=== PATIENT | female | born 1950 | race Caucasian/White ===

== ENCOUNTER 2018-03-30 11:22 | Inpatient (IN) | payer MEDICARE, OTHER ==
[2018-03-30] MEDS ORDERED: Sodium Chloride 0.9% 1,000 ML IV STA (11:57)
--- NOTE | 2018-03-30 12:10 | ED PDOC ---
Syncope/Near Syncope/Dizziness Time Seen by Provider: 03/30/18 11:48 Chief Complaint (Nursing): Syncope Chief Complaint (Provider): Syncope History Per: Family History/Exam Limitations: no limitations Number Of Syncopal Episodes: 3 Fall Associated With With Symptoms: No Additional Complaint(s): Daughter states patient c/o mild TAN this morning. Pt was walking when she had syncopal episode, caught by daughter, no head trauma, lasted few seconds, shaking up both arms but daughter states was not seizure, no postictal period. Daughter took BP after episode, systolic 60s-90s, appeared pale with cool skin. Had another syncopal episode while lying in bed and another while sitting in chair. Pt with Alzheimer's disease, normally ambulates but oriented X 0. Pt finished radiation therapy for pancreatic CA. Past Medical History Reviewed: Nursing Documentation, Vital Signs Vital Signs: Last Vital Signs Temp 97.8 F 03/30/18 11:55 Pulse 64 03/30/18 11:55 Resp 16 03/30/18 11:55 BP 100/51 L 03/30/18 11:55 Pulse Ox 96 03/30/18 11:55 - Medical History PMH: Alzheimer's Disease, Malignancy - Family History Family History: States: Unknown Family Hx - Living Arrangements Living Arrangements: With Family - Social History Current smoker - smoking cessation education provided: No - Home Medications Home Medications: Ambulatory Orders Medication Instructions Recorded Aspirin [Ecotrin] 81 mg PO DAILY 03/30/18 Carvedilol [Coreg] 6.25 mg PO DAILY 03/30/18 Dapagliflozin Propanediol [Farxiga] 5 mg PO DAILY 03/30/18 Donepezil [Aricept] 10 mg PO Q12 03/30/18 Enalapril Maleate [Vasotec] 10 mg PO DAILY 03/30/18 Ergocalciferol (Vitamin D2) 50,000 unit PO WE 03/30/18 [Vitamin D2] Fludrocortisone [Florinef] 0.05 mg PO DAILY 03/30/18 Insulin Glargine,Hum.rec.anlog 35 unit SC BID 03/30/18 [Basaglar Kwikpen U-100] Levothyroxine [Synthroid] 175 mcg PO DAILY 03/30/18 Lubiprostone [Amitiza] 8 mcg PO DAILY 03/30/18 MetFORMIN [glucoPHAGE] 1,000 mg PO BID 03/30/18 Multivitamin [Multi-Vitamin Daily] 1 tab PO DAILY 03/30/18 Pioglitazone HCl [Actos] 15 mg PO DAILY 03/30/18 Rosuvastatin Calcium [Crestor] 40 mg PO HS 03/30/18 - Allergies Allergies/Adverse Reactions: Allergies Allergy/AdvReac Type Severity Reaction Status Date / Time No Known Allergies Allergy Verified 03/30/18 11:37 Review of Systems Review Of Systems: ROS cannot be obtained secondary to pt's inabilty to answer questions. Physical Exam - Physical Exam Appears: Positive for: Well, No Acute Distress Head Exam: Positive for: ATRAUMATIC, NORMAL INSPECTION Skin: Positive for: Normal Color, Warm, Dry Eye Exam: Positive for: Normal appearance, EOMI, PERRL Neck: Positive for: Normal Cardiovascular/Chest: Positive for: Regular Rate, Rhythm Respiratory: Positive for: Normal Breath Sounds Gastrointestinal/Abdominal: Positive for: Normal Exam, Bowel Sounds, Soft. Negative for: Tenderness Back: Positive for: Normal Inspection Extremity: Positive for: Normal ROM Neurologic/Psych: Positive for: Alert, blasting contract miner II-XII (Grossly intact). Negative for: Oriented, Motor/Sensory Deficits, Facial Droop - Laboratory Results Result Diagrams: 03/31/18 07:00 03/31/18 08:00 - ECG O2 Sat by Pulse Oximetry: 96 Medical Decision Making Medical Decision Makin yo female with syncopal episodes. - labs - EKG - CXR - CT head - IVF - orthostatics Accession No. : [id number] Patient Name / ID : GINA GONZALEZ / [id number] Exam Date : 03/30/2018 12:06:07 ( Approved ) Study Comment : Sex / Age : F / 67Y Creator : Ahmet Valle MD Dictator : Ahmet Valle MD Retail Inventory Control Clerk : Process Development Associate : Ahmet Valle MD Approver2 : Report Date : 03/30/2018 12:55:18 My Comment : HISTORY: Syncope COMPARISON: 07/15/2013 FINDINGS: LUNGS: Increased vascular congestion. No focal airspace opacity. PLEURA: No significant pleural effusion identified, no pneumothorax apparent. CARDIOVASCULAR: Stable cardiomediastinal silhouette. OSSEOUS STRUCTURES: Degenerative changes. VISUALIZED UPPER ABDOMEN: Normal. OTHER FINDINGS: None. IMPRESSION: Increased vascular congestion. No focal airspace opacity. Accession No. : [id number] Patient Name / ID : GINA GONZALEZ / [id number] Exam Date : 03/30/2018 13:20:22 ( Approved ) Study Comment : Sex / Age : F / 67Y Creator : Ahmet Valle MD Dictator : Ahmet Valle MD Retail Inventory Control Clerk : Process Development Associate : Ahmet Valle MD Approver2 : Report Date : 03/30/2018 13:59:23 My Comment : PROCEDURE: CT HEAD WITHOUT CONTRAST. HISTORY: Syncope COMPARISON: 07/15/2013 TECHNIQUE: Axial computed tomography images were obtained through the head/brain without intravenous contrast. Radiation dose: Total exam DLP = 795.1 mGy-cm. This CT exam was performed using one or more of the following dose reduction techniques: Automated exposure control, adjustment of the mA and/or kV according to patient size, and/or use of iterative reconstruction technique. FINDINGS: HEMORRHAGE: No intracranial hemorrhage. BRAIN: No mass effect or edema. Mild volume loss. Patchy and confluent hypodensities throughout the bilateral cerebral hemispheric white matter are most likely from chronic small vessel ischemic changes. VENTRICLES: Unremarkable. No hydrocephalus. CALVARIUM: Unremarkable. PARANASAL SINUSES: Unremarkable as visualized. No significant inflammatory changes. MASTOID AIR CELLS: Unremarkable as visualized. No inflammatory changes. OTHER FINDINGS: None. IMPRESSION: No CT evidence of acute intracranial hemorrhage or acute territorial infarct. Acute infarction may be CT occult within first 24 hours. If a focal deficit persists, consider followup CT or MRI for further evaluation. Disposition - Clinical Impression Clinical Impression: Syncope - Patient ED Disposition Is Patient to be Admitted: Yes - Disposition Disposition Time: 16:43 Condition: GUARDED - Pt Status Changed To: Hospital Disposition Of: Inpatient - Admit Certification Admit to Inpatient:: After my assessment, the patient will require hospitalization for at least two midnights. This is because of the severity of symptoms shown, intensity of services needed, and/or the medical risk in this patient being treated as an outpatient. - POA Present On Arrival: None
[2018-03-30 12:55] LABS: BASO # 0.1 K/uL (0.0-0.2); EOS # 0.3 K/uL (0.0-0.7); EOS % 2.6 % (0.0-4.0); HEMOGLOBIN 12.8 g/dL (12.0-16.0); LYMPH # 2.4 K/uL (1.0-4.3); LYMPH % 18.3 % (20.0-40.0); MEAN CELL VOLUME 90.7 fl (81.0-99.0); MEAN CORPUSCULAR HEMOGLOBIN 30.1 pg (27.0-31.0); MEAN CORPUSCULAR HGB CONC 33.2 g/dL (33.0-37.0); MEAN PLATELET VOLUME 10.3 fl (7.2-11.7); MONO # 0.8 K/uL (0.0-0.8); MONO % 6.3 % (0.0-10.0); NEUT # 9.4 K/uL (1.8-7.0); NEUT % 71.8 % (50.0-75.0); NRBC % 0.1 % (0.0-0.0); RBC 4.26 Mil/uL (3.80-5.20); RED CELL DISTRIBUTION WIDTH 13.7 % (11.5-14.5); WHITE BLOOD COUNT 13.1 K/uL (4.8-10.8)
--- NOTE | 2018-03-30 12:56 | RAD ---
HISTORY: Syncope COMPARISON: 07/15/2013 FINDINGS: LUNGS: Increased vascular congestion. No focal airspace opacity. PLEURA: No significant pleural effusion identified, no pneumothorax apparent. CARDIOVASCULAR: Stable cardiomediastinal silhouette. OSSEOUS STRUCTURES: Degenerative changes. VISUALIZED UPPER ABDOMEN: Normal. OTHER FINDINGS: None. IMPRESSION: Increased vascular congestion. No focal airspace opacity.
[2018-03-30 13:05] LABS: ALB/GLOB RATIO 1.2 (1.0-2.1); ALBUMIN 4.2 g/dL (3.5-5.0); ALT/SGPT 25 U/L (9-52); AST/SGOT 29 U/L (14-36); BLOOD UREA NITROGEN 23 mg/dl (7-17); CALCIUM 9.2 mg/dL (8.4-10.2); GFR AFRICAN-AMERICAN 60; GFR NON-AFRICAN AMERICAN 49
--- NOTE | 2018-03-30 14:00 | CT ---
PROCEDURE: CT HEAD WITHOUT CONTRAST. HISTORY: Syncope COMPARISON: 07/15/2013 TECHNIQUE: Axial computed tomography images were obtained through the head/brain without intravenous contrast. Radiation dose: Total exam DLP = 795.1 mGy-cm. This CT exam was performed using one or more of the following dose reduction techniques: Automated exposure control, adjustment of the mA and/or kV according to patient size, and/or use of iterative reconstruction technique. FINDINGS: HEMORRHAGE: No intracranial hemorrhage. BRAIN: No mass effect or edema. Mild volume loss. Patchy and confluent hypodensities throughout the bilateral cerebral hemispheric white matter are most likely from chronic small vessel ischemic changes. VENTRICLES: Unremarkable. No hydrocephalus. CALVARIUM: Unremarkable. PARANASAL SINUSES: Unremarkable as visualized. No significant inflammatory changes. MASTOID AIR CELLS: Unremarkable as visualized. No inflammatory changes. OTHER FINDINGS: None. IMPRESSION: No CT evidence of acute intracranial hemorrhage or acute territorial infarct. Acute infarction may be CT occult within first 24 hours. If a focal deficit persists, consider followup CT or MRI for further evaluation.
[2018-03-30 18:03] LABS: SQUAMOUS EPITHIAL 6 /hpf (0-5); URINE BACTERIA OCC (<OCC); URINE BILIRUBIN NEGATIVE (NEGATIVE); URINE BLOOD SMALL (NEGATIVE); URINE CLARITY CLOUDY (Clear); URINE COLOR YELLOW (YELLOW); URINE GLUCOSE (UA) >=500 mg/dL (Normal); URINE HYALINE CAST 0-2 /hpf (0-2); URINE LEUKOCYTE ESTERASE LARGE Leu/uL (Negative); URINE PROTEIN NEGATIVE (NEGATIVE); URINE UROBILINOGEN 0.2-1.0 mg/dL (0.2-1.0)
[2018-03-30] MEDS ORDERED: Insulin Detemir 100 Units/ml Inj SC SCH (22:00)
[2018-03-30] MEDS: Insulin Regular 100 units/ml SC SCH (23:35)
[2018-03-31 01:44] VITALS: BMI 31.2
[2018-03-31] MEDS: Levothyroxine 175 MCG TAB PO SCH (06:08)
[2018-03-31] MEDS: Insulin Regular 100 units/ml SC SCH ×4 (06:33→21:56)
[2018-03-31 08:10] LABS: HEMOGLOBIN 12.6 g/dL (12.0-16.0); MEAN CELL VOLUME 90.4 fl (81.0-99.0); MEAN CORPUSCULAR HEMOGLOBIN 30.3 pg (27.0-31.0); MEAN CORPUSCULAR HGB CONC 33.5 g/dL (33.0-37.0); RBC 4.15 Mil/uL (3.80-5.20); RED CELL DISTRIBUTION WIDTH 13.1 % (11.5-14.5); WHITE BLOOD COUNT 11.1 K/uL (4.8-10.8)
[2018-03-31] MEDS: Multivitamin With Minerals Tab PO SCH (08:21)
[2018-03-31] MEDS: Enoxaparin 40 mg Syringe SC SCH (08:22)
--- NOTE | 2018-03-31 08:34 | CP.PCM.HP ---
History of Present Illness - History of Present Illness History of Present Illness: 67 YR OLD FEMALE ADMITTED WITH MULTIPLE SYNCOPAL EPISODES AND POSTURAL HYPOTENSION YESTERDAY.HX WAS OBTAINED FROM THE DAUGHTER WHO CLAIMED THAT THE PT HAD MULTIPLE SYNCOPAL EPISODES WHILE WALKING AND THEN WHILE SITTING ON THE COMMODE.HER BLOOD PRESSURE WAS LOW DURING EPISODES.SHE ALSO FELT COLD AND CLAMMY.IN THE ER,SHE WAS NOTED TO HAVE POSTURAL HYPOTENSION.THE PT IS PRESENTLY AWAKE/ALERT AND COMFORTABLE. PHX-THYROID CANCER? PANCREATIC CANCER--MANY YRS AGO--S/P SURGICAL RESECTION DM HTN DEMENTIA Present on Admission - Present on Admission Any Indicators Present on Admission: Yes Past Patient History - Past Medical History & Family History Past Medical History?: Yes - Past Social History Smoking Status: Never Smoked - CARDIAC Hx Cardiac Disorders: No - PULMONARY Hx Respiratory Disorders: No - NEUROLOGICAL Hx Neurological Disorder: Yes Hx Alzheimer's Disease: Yes - HEENT Hx HEENT Problems: No - RENAL Hx Chronic Kidney Disease: No - ENDOCRINE/METABOLIC Hx Endocrine Disorders: Yes Hx Diabetes Mellitus Type 2: Yes Other/Comment: pancreatic cancer - HEMATOLOGICAL/ONCOLOGICAL Hx Blood Disorders: Yes Hx AIDS: No Hx Chemotherapy: Yes (radiation theraphy just finished) Hx Human Immunodeficiency Virus (HIV): No Other/Comment: panceratic cancer,malignancy - INTEGUMENTARY Hx Dermatological Problems: No - MUSCULOSKELETAL/RHEUMATOLOGICAL 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) Hx Falls: No - GASTROINTESTINAL Hx Pancreatitis: Yes (panceratic cancer) - PSYCHIATRIC Hx Psychophysiologic Disorder: Yes Hx Substance Use: No Other/Comment: alzheimers dis - SURGICAL HISTORY Hx Surgeries: No - ANESTHESIA Hx Anesthesia: Yes Hx Anesthesia Reactions: No Hx Malignant Hyperthermia: No Has any member of the family had a problem w/ anesthesia?: No Meds Allergies/Adverse Reactions: Allergies Allergy/AdvReac Type Severity Reaction Status Date / Time No Known Allergies Allergy Verified 03/30/18 11:37 Physical Exam - Constitutional Appears: Well, No Acute Distress - Head Exam Head Exam: ATRAUMATIC, NORMAL INSPECTION, NORMOCEPHALIC - Eye Exam Eye Exam: EOMI, Normal appearance, PERRL Pupil Exam: NORMAL ACCOMODATION, PERRL - ENT Exam ENT Exam: Mucous Membranes Moist, Normal Exam - Neck Exam Neck exam: Positive for: Normal Inspection - Respiratory Exam Respiratory Exam: Clear to Auscultation Bilateral, NORMAL BREATHING PATTERN - Cardiovascular Exam Cardiovascular Exam: REGULAR RHYTHM - GI/Abdominal Exam GI & Abdominal Exam: Normal Bowel Sounds, Soft. absent: Tenderness - Rectal Exam Rectal Exam: NORMAL INSPECTION - Extremities Exam Extremities exam: Positive for: normal inspection - Back Exam Back exam: NORMAL INSPECTION - Neurological Exam Neurological exam: Alert, CN II-XII Intact, Reflexes Normal - Psychiatric Exam Psychiatric exam: Normal Affect, Normal Mood - Skin Skin Exam: Dry, Intact, Normal Color, Warm Results - Vital Signs Recent Vital Signs: Last Vital Signs Temp 98.1 F 03/31/18 08:00 Pulse 95 H 03/31/18 08:03 Resp 13 03/31/18 08:00 BP 138/58 L 03/31/18 08:00 Pulse Ox 98 03/31/18 08:00 - Labs Result Diagrams: 03/31/18 07:00 03/30/18 12:50 Labs: Laboratory Results - last 24 hr 03/30/18 03/30/18 03/30/18 11:37 12:50 12:50 WBC 13.1 H RBC 4.26 Hgb 12.8 Hct 38.6 MCV 90.7 MCH 30.1 MCHC 33.2 RDW 13.7 Plt Count 278 MPV 10.3 Neut % (Auto) 71.8 Lymph % (Auto) 18.3 L Dawson % (Auto) 6.3 Eos % (Auto) 2.6 Baso % (Auto) 1.0 Neut # (Auto) 9.4 H Lymph # (Auto) 2.4 Dawson # (Auto) 0.8 Eos # (Auto) 0.3 Baso # (Auto) 0.1 APTT Sodium 140 Potassium 4.6 Chloride 101 Carbon Dioxide 30 Anion Gap 14 BUN 23 H Creatinine 1.1 Est GFR ( Amer) 60 Est GFR (Non-Af Amer) 49 POC Glucose (mg/dL) 272 H Random Glucose 319 H Calcium 9.2 Total Bilirubin 0.6 AST 29 ALT 25 Alkaline Phosphatase 76 Troponin I < 0.0120 Total Protein 7.8 Albumin 4.2 Globulin 3.6 Albumin/Globulin Ratio 1.2 Urine Color Urine Clarity Urine pH Ur Specific Eldred Urine Protein Urine Glucose (UA) Urine Ketones Urine Blood Urine Nitrate Urine Bilirubin Urine Urobilinogen Ur Leukocyte Esterase Urine RBC (Auto) Urine Microscopic WBC Ur Squamous Epith Cells Urine Bacteria Hyaline Casts 03/30/18 03/30/18 03/30/18 12:50 17:12 17:40 WBC RBC Hgb Hct MCV MCH MCHC RDW Plt Count MPV Neut % (Auto) Lymph % (Auto) Dawson % (Auto) Eos % (Auto) Baso % (Auto) Neut # (Auto) Lymph # (Auto) Dawson # (Auto) Eos # (Auto) Baso # (Auto) APTT 29.8 Sodium Potassium Chloride Carbon Dioxide Anion Gap BUN Creatinine Est GFR ( Amer) Est GFR (Non-Af Amer) POC Glucose (mg/dL) 344 H Random Glucose Calcium Total Bilirubin AST ALT Alkaline Phosphatase Troponin I Total Protein Albumin Globulin Albumin/Globulin Ratio Urine Color Yellow Urine Clarity Cloudy Urine pH 6.0 Ur Specific Eldred 1.018 Urine Protein Negative Urine Glucose (UA) >=500 Urine Ketones Negative Urine Blood Small Urine Nitrate Negative Urine Bilirubin Negative Urine Urobilinogen 0.2-1.0 Ur Leukocyte Esterase Large Urine RBC (Auto) 4 H Urine Microscopic WBC 100 H Ur Squamous Epith Cells 6 H Urine Bacteria Occ H Hyaline Casts 0-2 03/30/18 03/30/18 03/31/18 20:56 22:55 05:43 WBC RBC Hgb Hct MCV MCH MCHC RDW Plt Count MPV Neut % (Auto) Lymph % (Auto) Dawson % (Auto) Eos % (Auto) Baso % (Auto) Neut # (Auto) Lymph # (Auto) Dawson # (Auto) Eos # (Auto) Baso # (Auto) APTT Sodium Potassium Chloride Carbon Dioxide Anion Gap BUN Creatinine Est GFR ( Amer) Est GFR (Non-Af Amer) POC Glucose (mg/dL) 333 H 304 H 208 H Random Glucose Calcium Total Bilirubin AST ALT Alkaline Phosphatase Troponin I Total Protein Albumin Globulin Albumin/Globulin Ratio Urine Color Urine Clarity Urine pH Ur Specific Eldred Urine Protein Urine Glucose (UA) Urine Ketones Urine Blood Urine Nitrate Urine Bilirubin Urine Urobilinogen Ur Leukocyte Esterase Urine RBC (Auto) Urine Microscopic WBC Ur Squamous Epith Cells Urine Bacteria Hyaline Casts 03/31/18 07:00 WBC 11.1 H RBC 4.15 Hgb 12.6 Hct 37.6 MCV 90.4 MCH 30.3 MCHC 33.5 RDW 13.1 Plt Count 260 MPV Neut % (Auto) Lymph % (Auto) Dawson % (Auto) Eos % (Auto) Baso % (Auto) Neut # (Auto) Lymph # (Auto) Dawson # (Auto) Eos # (Auto) Baso # (Auto) APTT Sodium Potassium Chloride Carbon Dioxide Anion Gap BUN Creatinine Est GFR ( Amer) Est GFR (Non-Af Amer) POC Glucose (mg/dL) Random Glucose Calcium Total Bilirubin AST ALT Alkaline Phosphatase Troponin I Total Protein Albumin Globulin Albumin/Globulin Ratio Urine Color Urine Clarity Urine pH Ur Specific Eldred Urine Protein Urine Glucose (UA) Urine Ketones Urine Blood Urine Nitrate Urine Bilirubin Urine Urobilinogen Ur Leukocyte Esterase Urine RBC (Auto) Urine Microscopic WBC Ur Squamous Epith Cells Urine Bacteria Hyaline Casts Assessment & Plan - Assessment and Plan (Free Text) Assessment: SYNCOPE POSTURAL HYPOTENSION HX OF HYPERTENSION HX OF THYROID CANCER HX OF PANCREATIC CANCER--SURGICALLY RESECTED MANY YRS AGO HX OF DEMENTIA DM TYPE 2 Plan: NEUROLOGY AND CARDIOLOGY EVAL MRI OF BRAIN ECHO CAROTID DOPPLER HOLD BP MEDS FOR NOW MONITOR S.GLU NEURO CHECKS
[2018-03-31] MEDS ORDERED: INSULIN GLARGINE HUM REC ANLOG 35 UNIT SC SCH (09:00)
[2018-03-31] MEDS ORDERED: Patient's Own Med (Multivitamin [Multi-Vitamin Daily] 1 TAB) PO SCH (09:00)
[2018-03-31 09:13] LABS: T4 12.6 ug/dl (5.5-11.0)
[2018-03-31] MEDS: Insulin Detemir 100 Units/ml Inj SC SCH ×2 (11:55→20:24)
[2018-03-31 12:39] LABS: BLOOD UREA NITROGEN 17 mg/dl (7-17); CALCIUM 8.9 mg/dL (8.4-10.2); GFR AFRICAN-AMERICAN > 60; GFR NON-AFRICAN AMERICAN > 60
--- NOTE | 2018-03-31 12:46 | CP.PCM.CON ---
History of Present Illness - History of Present Illness History of Present Illness: this 67-year-old diabetic female as well as a hypertensive who had required treatment for thyroid malignancy and also pancreatic malignancy recently has had multiple dizzy spells followed by a syncopal episode yesterday. Her daughter has been recording her blood pressure at home and she has noticed and the patient is reclining in bed has a normal blood pressure and feels well and upon standing up drops her systolic blood pressure in the range of 60 mmHg accompanied by severe dizzy spells and yesterday actually a syncopal episode. The patient came to, once she was horizontal again.there is no prior history of myocardial infarction or congestive cardiac failure. Physical examination shows an elderly lady with slightly flushed face. She is alert awake and coherent while lying in bed. She breathes comfortably at 16 breaths per minute had a heart rate of 68 bpm regular. Her blood pressure lying in bed was 120/74 mmHg sitting up in bed with feet dangling was 96/74 mmHg and upon standing up was 64/ 54 mmHg. The patient did not report dizziness at this point but she was promptly put back in bed with resolution of her hypotension. Her pedal pulses were feeble but distinctive present. There were no carotid bruits. Her JVP was not elevated and there was no edema over lower extremities. Her chest was clear her heart sounds are pure. Her electrocardiogram showed sinus rhythm with nonspecific ST-T changes. No Q waves were detected on the cardiogram her echocardiogram done this morning shows normal left ventricular systolic function with a depressed diastolic compliance. Her lab data was noted. The patient did display significant hyperglycemia. Impression: significant orthostatic hypotension which probably represents autonomic dysfunction secondary to long-standing diabetes mellitus. further aggravated by osmotic diuresis secondary to hyperglycemia possibly further aggravated by use of Farxiga in presence of left ventricular diastolic dysfunction. I started the patient on IV normal saline and given her Florinef. Past Patient History - Past Medical History & Family History Past Medical History?: Yes - Past Social History Smoking Status: Never Smoked - CARDIAC Hx Cardiac Disorders: No - PULMONARY Hx Respiratory Disorders: No - NEUROLOGICAL Hx Neurological Disorder: Yes Hx Alzheimer's Disease: Yes - HEENT Hx HEENT Problems: No - RENAL Hx Chronic Kidney Disease: No - ENDOCRINE/METABOLIC Hx Endocrine Disorders: Yes Hx Diabetes Mellitus Type 2: Yes Other/Comment: pancreatic cancer - HEMATOLOGICAL/ONCOLOGICAL Hx Blood Disorders: Yes Hx AIDS: No Hx Chemotherapy: Yes (radiation theraphy just finished) Hx Human Immunodeficiency Virus (HIV): No Other/Comment: panceratic cancer,malignancy - INTEGUMENTARY Hx Dermatological Problems: No - MUSCULOSKELETAL/RHEUMATOLOGICAL 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) Hx Falls: No - GASTROINTESTINAL Hx Pancreatitis: Yes (panceratic cancer) - PSYCHIATRIC Hx Psychophysiologic Disorder: Yes Hx Substance Use: No Other/Comment: alzheimers dis - SURGICAL HISTORY Hx Surgeries: No - ANESTHESIA Hx Anesthesia: Yes Hx Anesthesia Reactions: No Hx Malignant Hyperthermia: No Has any member of the family had a problem w/ anesthesia?: No Meds Allergies/Adverse Reactions: Allergies Allergy/AdvReac Type Severity Reaction Status Date / Time No Known Allergies Allergy Verified 03/30/18 11:37 - Medications Medications: Current Medications Aspirin (Ecotrin) 81 mg PO DAILY [facility] Last Admin: 03/31/18 08:21 Dose: 81 mg Atorvastatin Calcium (Lipitor) 20 mg PO DAILY [facility] Donepezil HCl (Aricept) 10 mg PO HS [facility] Last Admin: 03/30/18 23:16 Dose: 10 mg Enoxaparin Sodium (Lovenox) 40 mg SC DAILY [facility] PRN Reason: Protocol Last Admin: 03/31/18 08:22 Dose: 40 mg Fludrocortisone Acetate (Florinef) 0.1 mg PO BID [facility] Home Med (Dapagliflozin Propanediol [Farxiga]) 5 mg PO DAILY [facility] Sodium Chloride (Sodium Chloride 0.9%) 1,000 mls @ 100 mls/hr IV .Q10H [facility] Stop: 04/01/18 12:38 Insulin Detemir (Levemir) 35 units SC BID@0900,2100 [facility] Last Admin: 03/31/18 11:55 Dose: 35 u Insulin Human Regular (Humulin R) 0 units SC [facility] PRN Reason: Protocol Last Admin: 03/31/18 11:54 Dose: 3 units Levothyroxine Sodium (Synthroid) 175 mcg PO DAILY@0630 [facility] Last Admin: 03/31/18 06:08 Dose: 175 mcg Metformin HCl (Glucophage) 1,000 mg PO BID [facility] Last Admin: 03/31/18 08:22 Dose: 1,000 mg Multivitamins/Minerals (Therapeutic-M Tab) 1 tab PO DAILY [facility] Last Admin: 03/31/18 08:21 Dose: 1 tab Pioglitazone HCl (Actos) 15 mg PO DAILY [facility] Last Admin: 03/31/18 08:21 Dose: 15 mg Results - Vital Signs Recent Vital Signs: Last Vital Signs Temp 98.0 F 03/31/18 12:00 Pulse 79 03/31/18 12:00 Resp 18 03/31/18 12:00 BP 108/86 03/31/18 12:00 Pulse Ox 98 03/31/18 12:00 - Labs Result Diagrams: 03/31/18 07:00 03/31/18 08:00 Labs: Laboratory Results - last 24 hr 03/30/18 03/30/18 03/30/18 12:50 12:50 12:50 WBC 13.1 H RBC 4.26 Hgb 12.8 Hct 38.6 MCV 90.7 MCH 30.1 MCHC 33.2 RDW 13.7 Plt Count 278 MPV 10.3 Neut % (Auto) 71.8 Lymph % (Auto) 18.3 L [place] % (Auto) 6.3 Eos % (Auto) 2.6 Baso % (Auto) 1.0 Neut # (Auto) 9.4 H Lymph # (Auto) 2.4 [place] # (Auto) 0.8 Eos # (Auto) 0.3 Baso # (Auto) 0.1 APTT 29.8 Sodium 140 Potassium 4.6 Chloride 101 Carbon Dioxide 30 Anion Gap 14 BUN 23 H Creatinine 1.1 Est GFR ( Amer) 60 Est GFR (Non-Af Amer) 49 POC Glucose (mg/dL) Random Glucose 319 H Calcium 9.2 Total Bilirubin 0.6 AST 29 ALT 25 Alkaline Phosphatase 76 Troponin I < 0.0120 Total Protein 7.8 Albumin 4.2 Globulin 3.6 Albumin/Globulin Ratio 1.2 Triglycerides Cholesterol LDL Cholesterol Direct HDL Cholesterol Thyroxine (T4) TSH 3rd Generation Urine Color Urine Clarity Urine pH Ur Specific [place] Urine Protein Urine Glucose (UA) Urine Ketones Urine Blood Urine Nitrate Urine Bilirubin Urine Urobilinogen Ur Leukocyte Esterase Urine RBC (Auto) Urine Microscopic WBC Ur Squamous Epith Cells Urine Bacteria Hyaline Casts 03/30/18 03/30/18 03/30/18 17:12 17:40 20:56 WBC RBC Hgb Hct MCV MCH MCHC RDW Plt Count MPV Neut % (Auto) Lymph % (Auto) [place] % (Auto) Eos % (Auto) Baso % (Auto) Neut # (Auto) Lymph # (Auto) [place] # (Auto) Eos # (Auto) Baso # (Auto) APTT Sodium Potassium Chloride Carbon Dioxide Anion Gap BUN Creatinine Est GFR ( Amer) Est GFR (Non-Af Amer) POC Glucose (mg/dL) 344 H 333 H Random Glucose Calcium Total Bilirubin AST ALT Alkaline Phosphatase Troponin I Total Protein Albumin Globulin Albumin/Globulin Ratio Triglycerides Cholesterol LDL Cholesterol Direct HDL Cholesterol Thyroxine (T4) TSH 3rd Generation Urine Color Yellow Urine Clarity Cloudy Urine pH 6.0 Ur Specific [place] 1.018 Urine Protein Negative Urine Glucose (UA) >=500 Urine Ketones Negative Urine Blood Small Urine Nitrate Negative Urine Bilirubin Negative Urine Urobilinogen 0.2-1.0 Ur Leukocyte Esterase Large Urine RBC (Auto) 4 H Urine Microscopic WBC 100 H Ur Squamous Epith Cells 6 H Urine Bacteria Occ H Hyaline Casts 0-2 03/30/18 03/31/18 03/31/18 22:55 05:43 07:00 WBC 11.1 H RBC 4.15 Hgb 12.6 Hct 37.6 MCV 90.4 MCH 30.3 MCHC 33.5 RDW 13.1 Plt Count 260 MPV Neut % (Auto) Lymph % (Auto) [place] % (Auto) Eos % (Auto) Baso % (Auto) Neut # (Auto) Lymph # (Auto) [place] # (Auto) Eos # (Auto) Baso # (Auto) APTT Sodium Potassium Chloride Carbon Dioxide Anion Gap BUN Creatinine Est GFR ( Amer) Est GFR (Non-Af Amer) POC Glucose (mg/dL) 304 H 208 H Random Glucose Calcium Total Bilirubin AST ALT Alkaline Phosphatase Troponin I Total Protein Albumin Globulin Albumin/Globulin Ratio Triglycerides Cholesterol LDL Cholesterol Direct HDL Cholesterol Thyroxine (T4) TSH 3rd Generation Urine Color Urine Clarity Urine pH Ur Specific [place] Urine Protein Urine Glucose (UA) Urine Ketones Urine Blood Urine Nitrate Urine Bilirubin Urine Urobilinogen Ur Leukocyte Esterase Urine RBC (Auto) Urine Microscopic WBC Ur Squamous Epith Cells Urine Bacteria Hyaline Casts 03/31/18 03/31/18 03/31/18 07:52 08:00 11:45 WBC RBC Hgb Hct MCV MCH MCHC RDW Plt Count MPV Neut % (Auto) Lymph % (Auto) [place] % (Auto) Eos % (Auto) Baso % (Auto) Neut # (Auto) Lymph # (Auto) [place] # (Auto) Eos # (Auto) Baso # (Auto) APTT Sodium 140 Potassium 4.0 Chloride 104 Carbon Dioxide 26 Anion Gap 14 BUN 17 Creatinine 0.8 Est GFR ( Amer) > 60 Est GFR (Non-Af Amer) > 60 POC Glucose (mg/dL) 251 H Random Glucose 191 H Calcium 8.9 Total Bilirubin AST ALT Alkaline Phosphatase Troponin I Total Protein Albumin Globulin Albumin/Globulin Ratio Triglycerides 110 Cholesterol 151 LDL Cholesterol Direct 64 HDL Cholesterol 46 Thyroxine (T4) 12.6 H TSH 3rd Generation 0.03 L Urine Color Urine Clarity Urine pH Ur Specific [place] Urine Protein Urine Glucose (UA) Urine Ketones Urine Blood Urine Nitrate Urine Bilirubin Urine Urobilinogen Ur Leukocyte Esterase Urine RBC (Auto) Urine Microscopic WBC Ur Squamous Epith Cells Urine Bacteria Hyaline Casts
[2018-03-31] MEDS: Sodium Chloride 0.9% 1,000 ML IV SCH ×2 (13:07→20:26)
--- NOTE | 2018-03-31 13:44 | US ---
Date of service: 03/31/2018 PROCEDURE: Duplex ultrasound of the carotid and vertebral arteries. HISTORY: syncope COMPARISON: None available. TECHNIQUE: Grayscale and duplex Doppler evaluation of the cervical carotid and vertebral arteries were performed. The common carotid, carotid bifurcations and cervical ICA and proximal ECA were evaluated. The vertebral arteries were evaluated for gross patency and direction. FINDINGS: RIGHT CAROTID ARTERIES: Common Carotid Artery: Intimal thickening is present Maximal flow velocity of 78.9 cm/s. Carotid Bifurcation: Normal. Internal Carotid Artery:Heterogeneous plaque formation. Tortuous right ICA Maximal flow velocity of 65.0 cm/s. External Carotid Artery (proximal branches): Normal. Maximal flow velocity of 82.2 cm/s. ICA/CCA Ratio: 0.8 LEFT CAROTID ARTERIES: Common Carotid Artery: Intimal thickening is present Maximal flow velocity of 90.1 cm/s. Carotid Bifurcation: Normal. Internal Carotid Artery:Heterogeneous plaque formation. Tortuous left ICA Maximal flow velocity of 74.7 cm/s. External Carotid Artery (proximal branches): Normal. Maximal flow velocity of 110.6 cm/s. ICA/CCA Ratio: 1.2 VERTEBRAL ARTERIES: Right Vertebral Artery: Patent. Antegrade flow. Left Vertebral Artery: Patent. Antegrade flow. OTHER FINDINGS: None. IMPRESSION: Right ICA degree of stenosis: Less than 50% Left ICA degree of stenosis: Less than 50% Reference Internal Carotid Artery (ICA) Peak Systolic Velocity (PSV) for above: 1. Less than 50% stenosis less than 125 cm/s peak systolic velocity 2. 50-69% stenosis 125-230cm/s peak systolic velocity 3. Greater than 70% but less than near occlusion greater than 230 cm/s peak systolic velocity
--- NOTE | 2018-03-31 16:02 | MRI ---
Date of service: 03/31/2018 PROCEDURE: MRI BRAIN WITHOUT CONTRAST HISTORY: syncope COMPARISON: Comparison made with CT scan brain 03/30/2018. TECHNIQUE: Multiplanar, multisequence MR images of the brain were obtained without intravenous contrast enhancement. FINDINGS: HEMORRHAGE: No acute parenchymal, subarachnoid or extra-axial hemorrhage. No evidence of hemosiderin deposition is identified on gradient echo weighted sequence. DWI: No evidence of an acute or early subacute infarction seen on diffusion imaging. . BRAIN PARENCHYMA: Seen to better advantage are mild diffuse/ confluent chronic periventricular white matter ischemic changes with multiple more discrete round and elliptical shaped chronic appearing lacunar type infarcts scattered about the deep and subcortical white matter of both cerebral hemispheres. There may also be a few scattered chronic bilateral basal nuclei lacunar type infarcts difficult to distinguish from dilated perivascular spaces. None of these changes exhibit restricted diffusion. No obvious parenchymal nor extra-axial masses or collections seen on this noncontrast study. Moderate generalized volume loss. VENTRICLES: No obstructive hydrocephalus. CRANIUM: Unremarkable. ORBITS: Changes of bilateral cataract surgery. PARANASAL SINUSES/MASTOIDS: Minor mucosal thickening floor right maxillary antrum VASCULAR SYSTEM: Visualized visualized major vascular flow voids at skull base patent OTHER FINDINGS: None. IMPRESSION: No acute intracranial hemorrhage or infarct. Mild diffuse/ confluent chronic periventricular white matter ischemic changes with multiple more discrete round and elliptical shaped chronic appearing lacunar type infarcts scattered about the deep and subcortical white matter of both cerebral hemispheres. There may also be a few scattered chronic bilateral basal nuclei lacunar type infarcts difficult to distinguish from dilated perivascular spaces
--- NOTE | 2018-04-01 05:30 | CON ---
DATE: 03/31/2018 CHIEF COMPLAINT: Syncope. HISTORY OF PRESENTING ILLNESS: This is a 67-year-old diabetic woman with past medical history of hypertension, diabetes, history of thyroid malignancy, history of pancreatic malignancy and multiple dizzy spells in terms of syncopal episode yesterday. Her daughter has been recording her blood pressure at home and she noticed that when the patient is reclining in bed she has normal blood pressure and feels well, upon standing, she found the systolic blood pressure remains in 60 mm/Hg accompanied by severe dizzy spells and lightheadedness and actual syncope when she came in. She had a flushed face when she came in. There is evidence of orthostatic hypotension when her blood pressure was lying in bed was 120/74, sitting up in bed and while was 96/74 and upon standing was 64/54 indicating orthostatic hypotension. Currently, MRI of the brain showed no intracranial abnormalities. Her carotid Doppler showed no significant hemodynamic stenosis. At this time, she had also some underlying hyperglycemia of 319 when she came in, which is being managed by her medications. Thyroxine T4 level is 12.6 and TSH is 0.3. Currently, she is following commands. PAST MEDICAL HISTORY: As above. SOCIAL HISTORY: No illicit drug abuse, smoking, or EtOH abuse. REVIEW OF SYSTEMS: A 14-point review of systems negative except in the HPI. ALLERGIES: NO KNOWN DRUG ALLERGIES. FAMILY HISTORY: Noncontributory. LABORATORY DATA: Sodium is 140, potassium 4, chloride 104, carbon dioxide 26, BUN 17, creatinine 0.8. Random glucose 181. PHYSICAL EXAMINATION: VITAL SIGNS: Temperature 98.4, pulse rate 79, blood pressure 120/58, respiratory rate 19, oxygen saturation 97% on room air. GENERAL: The patient is sitting up in bed, in no acute distress. HEENT: Atraumatic, normocephalic. PERRLA. Extraocular muscles are intact. NECK: Supple. No JVD. No adenopathy noted. LUNGS: Clear to auscultation. No adventitious sounds. HEART: S1 and S2. Normal rate and rhythm. No murmur, rubs, or gallops. ABDOMEN: Soft, nontender, nondistended. Bowel sounds are present. EXTREMITIES: No clubbing. No cyanosis. Peripheral pulses are 2+ bilaterally. NEUROLOGIC: The patient is alert and oriented to person, place, month, and year. Speech is fluent without any errors. Cranial nerves II through XII are intact. Motor: Moves all extremities equally. Toes are downgoing bilaterally. No pronator drift seen. Moves all extremities equally. Sensory: Decreased to light touch and pinprick up to the calves bilaterally. Decreased vibration at the toes and knees. DTRs are 2+ throughout, 1 at both knees and absent at the ankles. Coordination: Qaafaw-gl-dsgi intact. No dysmetria noted. Gait is deferred for now. ASSESSMENT AND PLAN: 1. This is a 67-year-old diabetic woman with history of hypertension, diabetes, pancreatic malignancy, hypothyroidism, had evidence of syncope, which is secondary to transient cerebral hypoperfusion to the brain from orthostatic hypotension, probably representing secondary to longstanding diabetes mellitus, just further aggravated by osmotic diuresis secondary to hyperglycemia. At this time, MRI of the brain showed no acute intracranial abnormality. Carotid ultrasound showed no significant hemodynamic stenosis. At this time, I recommend compression stockings, Florinef 0.1 mg p.o. b.i.d. and as per cardiology. 2. Intravenous normal saline. 3. Hold blood pressure medications due to orthostatic changes. 4. Keep blood pressure between 140 to 180 and needs a better diabetic regimen in terms of diet control exercise. At this time, she is clinically stable from my standpoint. Thank you for this consult. Roscoe Moore MD
[2018-04-01] MEDS: Levothyroxine 175 MCG TAB PO SCH (05:55)
[2018-04-01] MEDS: Sodium Chloride 0.9% 1,000 ML IV SCH (05:58)
[2018-04-01] MEDS: Insulin Regular 100 units/ml SC SCH ×4 (06:32→21:43)
[2018-04-01] MEDS: Multivitamin With Minerals Tab PO SCH (08:12)
[2018-04-01] MEDS: Enoxaparin 40 mg Syringe SC SCH (08:14)
--- NOTE | 2018-04-01 10:13 | CP.PCM.PN ---
Subjective - Date & Time of Evaluation Date of Evaluation: 04/01/18 Time of Evaluation: 10:13 - Subjective Subjective: feels better hypotension improved Objective - Vital Signs/Intake and Output Vital Signs (last 24 hours): Temp Pulse Resp BP Pulse Ox 98.5 F 82 18 135/68 97 04/01/18 08:08 04/01/18 08:08 04/01/18 08:08 04/01/18 08:08 04/01/18 08:08 Intake and Output: 04/01/18 04/01/18 06:59 18:59 Intake Total 1000 Output Total 400 Balance 600 - Medications Medications: Current Medications Aspirin (Ecotrin) 81 mg PO DAILY [facility] Last Admin: 04/01/18 08:13 Dose: 81 mg Atorvastatin Calcium (Lipitor) 20 mg PO DAILY [facility] Last Admin: 04/01/18 08:12 Dose: 20 mg Donepezil HCl (Aricept) 10 mg PO HS [facility] Last Admin: 03/31/18 22:02 Dose: 10 mg Enoxaparin Sodium (Lovenox) 40 mg SC DAILY [facility] PRN Reason: Protocol Last Admin: 04/01/18 08:14 Dose: 40 mg Fludrocortisone Acetate (Florinef) 0.1 mg PO BID [facility] Last Admin: 04/01/18 08:14 Dose: 0.1 mg Home Med (Dapagliflozin Propanediol [Farxiga]) 5 mg PO DAILY [facility] Last Admin: 04/01/18 08:15 Dose: 5 mg Sodium Chloride (Sodium Chloride 0.9%) 1,000 mls @ 100 mls/hr IV .Q10H [facility] Stop: 04/01/18 12:38 Last Admin: 04/01/18 05:58 Dose: 100 mls/hr Insulin Detemir (Levemir) 35 units SC BID@0900,2100 [facility] Last Admin: 03/31/18 20:24 Dose: 35 units Insulin Human Regular (Humulin R) 0 units SC [facility] PRN Reason: Protocol Last Admin: 04/01/18 06:32 Dose: Not Given Levothyroxine Sodium (Synthroid) 175 mcg PO DAILY@0630 [facility] Last Admin: 04/01/18 05:55 Dose: 175 mcg Metformin HCl (Glucophage) 1,000 mg PO BID [facility] Last Admin: 04/01/18 08:15 Dose: 1,000 mg Multivitamins/Minerals (Therapeutic-M Tab) 1 tab PO DAILY [facility] Last Admin: 04/01/18 08:12 Dose: 1 tab Pioglitazone HCl (Actos) 15 mg PO DAILY [facility] Last Admin: 04/01/18 08:19 Dose: 15 mg - Labs Labs: 03/31/18 07:00 03/31/18 08:00 APTT 29.8 Seconds (25.6-37.1) 03/30/18 12:50 - Constitutional Appears: Well - Head Exam Head Exam: ATRAUMATIC, NORMAL INSPECTION, NORMOCEPHALIC - Eye Exam Eye Exam: EOMI, Normal appearance, PERRL Pupil Exam: NORMAL ACCOMODATION, PERRL - ENT Exam ENT Exam: Mucous Membranes Moist, Normal Exam - Neck Exam Neck Exam: Full ROM, Normal Inspection. absent: Lymphadenopathy - Respiratory Exam Respiratory Exam: Clear to Ausculation Bilateral, NORMAL BREATHING PATTERN - Cardiovascular Exam Cardiovascular Exam: REGULAR RHYTHM, +S1, +S2. absent: Murmur - GI/Abdominal Exam GI & Abdominal Exam: Soft, Normal Bowel Sounds. absent: Tenderness - Rectal Exam Rectal Exam: NORMAL INSPECTION - Extremities Exam Extremities Exam: Full ROM, Normal Capillary Refill, Normal Inspection. absent : Joint Swelling, Pedal Edema - Back Exam Back Exam: NORMAL INSPECTION - Neurological Exam Neurological Exam: Alert, Awake, CN II-XII Intact, Normal Gait, Oriented x3 - Psychiatric Exam Psychiatric exam: Normal Affect, Normal Mood - Skin Skin Exam: Dry, Intact, Normal Color, Warm Assessment and Plan - Assessment and Plan (Free Text) Assessment: syncope pstural hypotension probably due to meds?diabetes htn-by history thyroid dz Plan: continue present rx d/c faxiga pt eval
--- NOTE | 2018-04-01 10:21 | CP.PCM.PN ---
Subjective - Date & Time of Evaluation Date of Evaluation: 04/01/18 Time of Evaluation: 09:00 - Subjective Subjective: Quite asymptomatic while lying down in bed Steady sinus rhythm at 70-80 BPM BP 140/76 mm Hg lying down 126/70 mm Hg standing up (Pt asymptomatic) Rest of her physical exam unremarkable IV NS D/Long Pt to sit OOB and have her BP recorded stnding up Antidiabetic changed so as to avoid severe glucosuria Discussed with Dr. Husain Objective - Vital Signs/Intake and Output Vital Signs (last 24 hours): Temp Pulse Resp BP Pulse Ox 98.5 F 82 18 135/68 97 04/01/18 08:08 04/01/18 08:08 04/01/18 08:08 04/01/18 08:08 04/01/18 08:08 Intake and Output: 04/01/18 04/01/18 06:59 18:59 Intake Total 1000 Output Total 400 Balance 600 - Medications Medications: Current Medications Aspirin (Ecotrin) 81 mg PO DAILY [facility] Last Admin: 04/01/18 08:13 Dose: 81 mg Atorvastatin Calcium (Lipitor) 20 mg PO DAILY [facility] Last Admin: 04/01/18 08:12 Dose: 20 mg Donepezil HCl (Aricept) 10 mg PO HS [facility] Last Admin: 03/31/18 22:02 Dose: 10 mg Enoxaparin Sodium (Lovenox) 40 mg SC DAILY [facility] PRN Reason: Protocol Last Admin: 04/01/18 08:14 Dose: 40 mg Fludrocortisone Acetate (Florinef) 0.1 mg PO BID [facility] Last Admin: 04/01/18 08:14 Dose: 0.1 mg Insulin Detemir (Levemir) 35 units SC BID@0900,2100 [facility] Last Admin: 03/31/18 20:24 Dose: 35 units Insulin Human Regular (Humulin R) 0 units SC [facility] PRN Reason: Protocol Last Admin: 04/01/18 06:32 Dose: Not Given Levothyroxine Sodium (Synthroid) 175 mcg PO DAILY@0630 [facility] Last Admin: 04/01/18 05:55 Dose: 175 mcg Metformin HCl (Glucophage) 1,000 mg PO BID [facility] Last Admin: 04/01/18 08:15 Dose: 1,000 mg Multivitamins/Minerals (Therapeutic-M Tab) 1 tab PO DAILY [facility] Last Admin: 04/01/18 08:12 Dose: 1 tab Pioglitazone HCl (Actos) 15 mg PO DAILY [facility] Last Admin: 04/01/18 08:19 Dose: 15 mg - Labs Labs: 03/31/18 07:00 03/31/18 08:00 APTT 29.8 Seconds (25.6-37.1) 03/30/18 12:50
--- NOTE | 2018-04-01 10:23 | PQF ---
PROVIDER RESPONSE TEXT: Syncope due to postural hypotension from meds and diabetic autoneuropathy REVIEWER QUERY TEXT: Clarification of Clinical Diagnostic Findings Etiology of Syncope ? if know after the work up is completed OR: Unable to determine H and P; WITH MULTIPLE SYNCOPAL EPISODES AND POSTURAL HYPOTENSION YESTERDAY IN THE ER,SHE WAS NOTED T O HAVE POSTURAL HYPOTENSION. Assessment: SYNCOPE POSTURAL HYPOTENSION DM Type 2 --HX:HYPERTENSION, THYROID CANCER , PANCREATIC C ANCER--SURGICALLY RESECTED MANY YRS AGO, DEMENTIA Plan: NEURO AND CARDIO EVALUATION: MRI OF BRAIN ECHO CAROTID DOPPLER HOLD BP MEDS FOR NOW MONITOR S.Aubrie CARMELINA NEURO CHECKS 03/31 Cardiology consult: Her blood pressure lying in bed was 120/74 mmHg sitting up in bed with feet dangling was 96/74 mmHg and upon standing up was 64/ 54 mmHg. The patient did not report dizziness at this point but she was promptly put back in bed with resolution of her hypotension. Impression: significant orthostatic hypotension which probably represents autonomic dysfunction secon aleyda to long-standing DM. further aggravated by osmotic diuresis secondary to hyperglycemia possibly further aggravated by use of Farxiga in presence of left ventricular diastolic dysfunction. I started the patient on IV normal saline and given her Florinef. The patient's Clinical Indicators include: XXXX Query created by: Roseline Mercado on 03/31/2018 2:37 PM Electronically signed by: Guzman Husain MD 04/01/2018 10:19 AM
--- NOTE | 2018-04-01 11:29 | CARD ---
APPROVED REPORT Date of service: 03/31/2018 EXAM: Two-dimensional and M-mode echocardiogram with Doppler and color Doppler. Other Information Quality : GoodRhythm : NSR INDICATION Syncope 2D DIMENSIONS IVSd1.06 (0.7-1.1cm)LVDd3.34 (3.9-5.9cm) LVOT Diameter1.80 (1.8-2.4cm)PWd1.28 (0.7-1.1cm) IVSs1.38 (0.8-1.2cm)LVDs2.23 (2.5-4.0cm) FS (%) 33.5 %PWs1.33 (0.8-1.2cm) M-Mode DIMENSIONS Left Atrium (MM)3.39 (2.5-4.0cm)IVSd0.77 (0.7-1.1cm) Aortic Root3.28 (2.2-3.7cm)LVDd5.32 (4.0-5.6cm) Aortic Cusp Exc.1.71 (1.5-2.0cm)PWd1.13 (0.7-1.1cm) IVSs1.68 cmFS (%) 58 % LVDs2.23 (2.0-3.8cm)PWs1.74 cm Aortic Valve AoV Peak Rrvfdazn333.2cm/sAoV VTI34.3cmAO Peak GR.8mmHg LVOT Peak Qebgsfoh76.7cm/sLVOT VTI23.00cmAO Mean GR.5mmHg ADAM (VMAX)0.13ei0WDV (VTI)0.99cm2 Mitral Valve MV E [place]no012.0cm/sMV DECEL [id number] A Dofiptva982.2cm/s MV PSJ87qxR/A ratio0.8MVA (PHT)3.45cm2 TDI Lateral E' Peak V8.80cm/sMedial E' Peak V7.58cm/sE/Lateral E'11.5 E/Medial E'13.3 Pulmonary Valve PV Peak Aebkrtyy47.4cm/s LEFT VENTRICLE The left ventricle is normal size. There is borderline concentric left ventricular hypertrophy. The left ventricular function is normal. The left ventricular ejection fraction is within the normal range. The Ejection Fraction is 60-65%. There is normal LV segmental wall motion. Transmitral Doppler flow pattern is Grade I-abnormal relaxation pattern. RIGHT VENTRICLE The right ventricle is normal size. The right ventricular systolic function is normal. ATRIA The left atrium size is normal. The right atrium size is normal. AORTIC VALVE The aortic valve is mildly sclerotic. No aortic regurgitation is present. There is no aortic valvular stenosis. MITRAL VALVE The mitral valve is thickened but opens well. There is no mitral valve stenosis. Mitral regurgitation is trace. TRICUSPID VALVE The tricuspid valve is normal in structure. There is trace to mild tricuspid regurgitation. PULMONIC VALVE The pulmonic valve is not well visualized. There is no pulmonic valvular regurgitation. GREAT VESSELS The aortic root is normal in size. The IVC is normal in size and collapses >50% with inspiration. PERICARDIAL EFFUSION The pericardium appears normal. <Conclusion> The left ventricular function is normal. The left ventricular ejection fraction is within the normal range. The Ejection Fraction is 60-65%. Transmitral Doppler flow pattern is Grade I-abnormal relaxation pattern. Mitral regurgitation is trace. There is trace to mild tricuspid regurgitation.
[2018-04-02] MEDS: Levothyroxine 175 MCG TAB PO SCH (05:47)
--- NOTE | 2018-04-02 08:55 | CP.PCM.PN ---
Subjective - Date & Time of Evaluation Date of Evaluation: 04/02/18 Time of Evaluation: 08:57 - Subjective Subjective: FEELSW BETTER TODAY POSTURAL HYPOTENSION IMPROVING S.GLU BETTER CONTROLLED Objective - Vital Signs/Intake and Output Vital Signs (last 24 hours): Temp Pulse Resp BP Pulse Ox 98.2 F 79 12 137/53 L 100 04/02/18 03:00 04/02/18 03:00 04/02/18 03:00 04/02/18 04:00 04/02/18 03:00 Intake and Output: 04/02/18 04/02/18 06:59 18:59 Intake Total 100 Output Total 500 Balance -400 - Medications Medications: Current Medications Aspirin (Ecotrin) 81 mg PO DAILY [facility] Last Admin: 04/01/18 08:13 Dose: 81 mg Atorvastatin Calcium (Lipitor) 20 mg PO DAILY [facility] Last Admin: 04/01/18 08:12 Dose: 20 mg Donepezil HCl (Aricept) 10 mg PO HS [facility] Last Admin: 04/01/18 21:15 Dose: 10 mg Enoxaparin Sodium (Lovenox) 40 mg SC DAILY [facility] PRN Reason: Protocol Last Admin: 04/01/18 08:14 Dose: 40 mg Fludrocortisone Acetate (Florinef) 0.1 mg PO BID [facility] Last Admin: 04/01/18 16:58 Dose: 0.1 mg Insulin Human Regular (Humulin R) 0 units SC [facility] PRN Reason: Protocol Last Admin: 04/01/18 21:43 Dose: Not Given Levothyroxine Sodium (Synthroid) 175 mcg PO DAILY@0630 [facility] Last Admin: 04/02/18 05:47 Dose: 175 mcg Metformin HCl (Glucophage) 1,000 mg PO BID [facility] Last Admin: 04/01/18 16:59 Dose: 1,000 mg Multivitamins/Minerals (Therapeutic-M Tab) 1 tab PO DAILY [facility] Last Admin: 04/01/18 08:12 Dose: 1 tab Pioglitazone HCl (Actos) 15 mg PO DAILY [facility] Last Admin: 04/01/18 08:19 Dose: 15 mg - Labs Labs: 03/31/18 07:00 03/31/18 08:00 APTT 29.8 Seconds (25.6-37.1) 03/30/18 12:50 - Constitutional Appears: Well - Head Exam Head Exam: ATRAUMATIC, NORMAL INSPECTION, NORMOCEPHALIC - Eye Exam Eye Exam: EOMI, Normal appearance, PERRL Pupil Exam: NORMAL ACCOMODATION, PERRL - ENT Exam ENT Exam: Mucous Membranes Moist, Normal Exam - Neck Exam Neck Exam: Full ROM, Normal Inspection. absent: Lymphadenopathy - Respiratory Exam Respiratory Exam: Clear to Ausculation Bilateral, NORMAL BREATHING PATTERN - Cardiovascular Exam Cardiovascular Exam: REGULAR RHYTHM, +S1, +S2. absent: Murmur - GI/Abdominal Exam GI & Abdominal Exam: Soft, Normal Bowel Sounds. absent: Tenderness - Rectal Exam Rectal Exam: NORMAL INSPECTION - Extremities Exam Extremities Exam: Full ROM, Normal Capillary Refill, Normal Inspection. absent : Joint Swelling, Pedal Edema - Back Exam Back Exam: NORMAL INSPECTION - Neurological Exam Neurological Exam: Alert, Awake, CN II-XII Intact, Normal Gait, Oriented x3 - Psychiatric Exam Psychiatric exam: Normal Affect, Normal Mood - Skin Skin Exam: Dry, Intact, Normal Color, Warm Assessment and Plan - Assessment and Plan (Free Text) Assessment: SYNCOPE POSTURAL HYPOTENSION DM HTN THYROID DZ Plan: FUNDRAISING CONSULTANT FOR TRANSFER TO TCU PT/OT MOITOR BP AND GLU CLOSELY
--- NOTE | 2018-04-02 09:05 | CP.PCM.PN ---
Subjective - Date & Time of Evaluation Date of Evaluation: 04/02/18 Time of Evaluation: 08:40 - Subjective Subjective: Sat OOB virtually all day without any symptoms Sinus rhythm at 60-70 BPM BP lying down 160/70 mm Hg Sitting up 146/70 mm Hg Standing up 130/70 mm Hg Discussed with Dr. Husain Pt may go to TCU Objective - Vital Signs/Intake and Output Vital Signs (last 24 hours): Temp Pulse Resp BP Pulse Ox 98.2 F 79 12 137/53 L 100 04/02/18 03:00 04/02/18 03:00 04/02/18 03:00 04/02/18 04:00 04/02/18 03:00 Intake and Output: 04/02/18 04/02/18 06:59 18:59 Intake Total 100 Output Total 500 Balance -400 - Medications Medications: Current Medications Aspirin (Ecotrin) 81 mg PO DAILY [facility] Last Admin: 04/01/18 08:13 Dose: 81 mg Atorvastatin Calcium (Lipitor) 20 mg PO DAILY [facility] Last Admin: 04/01/18 08:12 Dose: 20 mg Donepezil HCl (Aricept) 10 mg PO [facility] Last Admin: 04/01/18 21:15 Dose: 10 mg Enoxaparin Sodium (Lovenox) 40 mg SC DAILY [facility] PRN Reason: Protocol Last Admin: 04/01/18 08:14 Dose: 40 mg Fludrocortisone Acetate (Florinef) 0.1 mg PO BID [facility] Last Admin: 04/01/18 16:58 Dose: 0.1 mg Insulin Human Regular (Humulin R) 0 units SC [facility] PRN Reason: Protocol Last Admin: 04/01/18 21:43 Dose: Not Given Levothyroxine Sodium (Synthroid) 175 mcg PO DAILY@0630 [facility] Last Admin: 04/02/18 05:47 Dose: 175 mcg Metformin HCl (Glucophage) 1,000 mg PO BID [facility] Last Admin: 04/01/18 16:59 Dose: 1,000 mg Multivitamins/Minerals (Therapeutic-M Tab) 1 tab PO DAILY [facility] Last Admin: 04/01/18 08:12 Dose: 1 tab Pioglitazone HCl (Actos) 15 mg PO DAILY [facility] Last Admin: 04/01/18 08:19 Dose: 15 mg - Labs Labs: 03/31/18 07:00 03/31/18 08:00 APTT 29.8 Seconds (25.6-37.1) 03/30/18 12:50
[2018-04-02] MEDS: Insulin Regular 100 units/ml SC SCH ×3 (10:03→16:47)
[2018-04-02] MEDS: Enoxaparin 40 mg Syringe SC SCH (10:04)
[2018-04-02] MEDS: Multivitamin With Minerals Tab PO SCH (10:04)
[2018-04-02 16:19] VITALS: BP 114/61; TEMP 98.7; O2SAT 96
--- NOTE | 2018-04-02 16:44 | CARD ---
APPROVED REPORT Date of service: 03/30/2018 EKG Measurement Heart [id number] <Conclusion> Normal sinus rhythm Prolonged QT Abnormal ECG
[2018-04-02 17:21] VITALS: PULSE 72; RESP 15
--- NOTE | 2018-04-03 12:18 | CP.PCM.DIS ---
Provider - Provider Date of Admission: 03/30/18 16:43 Attending physician: Guzman Husain MD Time Spent in preparation of Discharge (in minutes): 35 Diagnosis - Discharge Diagnosis (1) Postural hypotension Status: Acute (2) Autonomic postural hypotension Status: Acute (3) Syncope Status: Acute (4) Diabetes 1.5, managed as type 2 Status: Acute (5) Hypertension Status: Acute (6) History of pancreatic cancer Status: Acute (7) History of thyroid cancer Status: Acute Hospital Course - Lab Results Lab Results: Micro Results 03/30/18 11:10 Nose MRSA Culture (Admit) - Final MRSA NOT DETECTED 03/30/18 17:30 Urine,Clean Catch Urine Culture - Final 50-100,000 CFU/ML. MULTIPLE SPECIES. SUGGEST REPEAT SPECIMEN. Most Recent Lab Values WBC 11.1 K/uL (4.8-10.8) H 03/31/18 07:00 RBC 4.15 Mil/uL (3.80-5.20) 03/31/18 07:00 Hgb 12.6 g/dL (12.0-16.0) 03/31/18 07:00 Hct 37.6 % (34.0-47.0) 03/31/18 07:00 MCV 90.4 fl (81.0-99.0) 03/31/18 07:00 MCH 30.3 pg (27.0-31.0) 03/31/18 07:00 MCHC 33.5 g/dL (33.0-37.0) 03/31/18 07:00 RDW 13.1 % (11.5-14.5) 03/31/18 07:00 Plt Count 260 K/uL (130-400) 03/31/18 07:00 MPV 10.3 fl (7.2-11.7) 03/30/18 12:50 Neut % (Auto) 71.8 % (50.0-75.0) 03/30/18 12:50 Lymph % (Auto) 18.3 % (20.0-40.0) L 03/30/18 12:50 [place] % (Auto) 6.3 % (0.0-10.0) 03/30/18 12:50 Eos % (Auto) 2.6 % (0.0-4.0) 03/30/18 12:50 Baso % (Auto) 1.0 % (0.0-2.0) 03/30/18 12:50 Neut # (Auto) 9.4 K/uL (1.8-7.0) H 03/30/18 12:50 Lymph # (Auto) 2.4 K/uL (1.0-4.3) 03/30/18 12:50 [place] # (Auto) 0.8 K/uL (0.0-0.8) 03/30/18 12:50 Eos # (Auto) 0.3 K/uL (0.0-0.7) 03/30/18 12:50 Baso # (Auto) 0.1 K/uL (0.0-0.2) 03/30/18 12:50 APTT 29.8 Seconds (25.6-37.1) 03/30/18 12:50 Sodium 140 mmol/l (132-148) 03/31/18 08:00 Potassium 4.0 MMOL/L (3.6-5.0) 03/31/18 08:00 Chloride 104 mmol/L (98-107) 03/31/18 08:00 Carbon Dioxide 26 mmol/L (22-30) 03/31/18 08:00 Anion Gap 14 (10-20) 03/31/18 08:00 BUN 17 mg/dl (7-17) 03/31/18 08:00 Creatinine 0.8 mg/dl (0.7-1.2) 03/31/18 08:00 Est GFR ( Amer) > 60 03/31/18 08:00 Est GFR (Non-Af Amer) > 60 03/31/18 08:00 POC Glucose (mg/dL) 192 mg/dL (65-110) H 04/02/18 16:29 Random Glucose 191 mg/dL (65-105) H 03/31/18 08:00 Calcium 8.9 mg/dL (8.4-10.2) 03/31/18 08:00 Total Bilirubin 0.6 mg/dl (0.2-1.3) 03/30/18 12:50 AST 29 U/L (14-36) 03/30/18 12:50 ALT 25 U/L (9-52) 03/30/18 12:50 Alkaline Phosphatase 76 U/L (38-126) 03/30/18 12:50 Troponin I < 0.0120 ng/mL (0.00-0.120) 03/30/18 12:50 Total Protein 7.8 G/DL (6.3-8.2) 03/30/18 12:50 Albumin 4.2 g/dL (3.5-5.0) 03/30/18 12:50 Globulin 3.6 gm/dL (2.2-3.9) 03/30/18 12:50 Albumin/Globulin Ratio 1.2 (1.0-2.1) 03/30/18 12:50 Triglycerides 110 mg/DL (0-149) 03/31/18 07:52 Cholesterol 151 mg/dL (0-199) 03/31/18 07:52 LDL Cholesterol Direct 64 mg/dL (0-129) 03/31/18 07:52 HDL Cholesterol 46 MG/DL (30-70) 03/31/18 07:52 Thyroxine (T4) 12.6 ug/dl (5.5-11.0) H 03/31/18 07:52 TSH 3rd Generation 0.03 mIU/ML (0.46-4.68) L 03/31/18 07:52 Urine Color Yellow (YELLOW) 03/30/18 17:40 Urine Clarity Cloudy (Clear) 03/30/18 17:40 Urine pH 6.0 (5.0-8.0) 03/30/18 17:40 Ur Specific [place] 1.018 (1.003-1.030) 03/30/18 17:40 Urine Protein Negative mg/dL (NEGATIVE) 03/30/18 17:40 Urine Glucose (UA) >=500 mg/dL (Normal) 03/30/18 17:40 Urine Ketones Negative mg/dL (NEGATIVE) 03/30/18 17:40 Urine Blood Small (NEGATIVE) 03/30/18 17:40 Urine Nitrate Negative (NEGATIVE) 03/30/18 17:40 Urine Bilirubin Negative (NEGATIVE) 03/30/18 17:40 Urine Urobilinogen 0.2-1.0 mg/dL (0.2-1.0) 03/30/18 17:40 Ur Leukocyte Esterase Large Danny/uL (Negative) 03/30/18 17:40 Urine RBC (Auto) 4 /hpf (0-3) H 03/30/18 17:40 Urine Microscopic WBC 100 /hpf (0-5) H 03/30/18 17:40 Ur Squamous Epith Cells 6 /hpf (0-5) H 03/30/18 17:40 Urine Bacteria Occ (<OCC) H 03/30/18 17:40 Hyaline Casts 0-2 /hpf (0-2) 03/30/18 17:40 - Hospital Course Hospital Course: clinically improved no recurrence of syncope Discharge Exam - Head Exam Head Exam: ATRAUMATIC, NORMAL INSPECTION, NORMOCEPHALIC - Eye Exam Eye Exam: EOMI, Normal appearance, PERRL Pupil Exam: NORMAL ACCOMODATION, PERRL - GI/Abdominal Exam GI & Abdominal Exam: Normal Bowel Sounds - Rectal Exam Rectal Exam: NORMAL INSPECTION - Neurological Exam Neurological exam: Alert, CN II-XII Intact, Normal Gait, Oriented x3, Reflexes Normal - Psychiatric Exam Psychiatric exam: Normal Affect, Normal Mood - Skin Skin Exam: Dry, Intact, Normal Color, Warm Discharge Plan - Follow Up Plan Condition: GUARDED Disposition: TRANSF TO SNF Patient education suggested?: Yes Additional Instructions: transfer to tcu
== END 2018-04-02 17:15 | DRG 312 ==
LOC: H.ER 11:22 → H.ERHOLD 16:43 → H.ICU/CCU 22:23
PROVIDERS: ADMIT Internal Medicine Pulmonary Disease; ATTEND Internal Medicine Pulmonary Disease
DX: I95.2 Hypotension due to drugs (principal); T38.3X5A Adverse effect of insulin and oral hypoglycemic [antidiabetic] drugs, initial encounter; E11.43 Type 2 diabetes mellitus with diabetic autonomic (poly)neuropathy; E11.65 Type 2 diabetes mellitus with hyperglycemia; F02.80 Dementia in other diseases classified elsewhere, unspecified severity, without behavioral disturbance, psychotic disturbance, mood disturbance, and anxiety; G30.9 Alzheimer's disease, unspecified; I10 Essential (primary) hypertension; E03.9 Hypothyroidism, unspecified; M19.012 Primary osteoarthritis, left shoulder; Z85.07 Personal history of malignant neoplasm of pancreas; Z85.850 Personal history of malignant neoplasm of thyroid; Z92.3 Personal history of irradiation; Z79.4 Long term (current) use of insulin; Z79.84 Long term (current) use of oral hypoglycemic drugs; Z79.82 Long term (current) use of aspirin; Z79.899 Other long term (current) drug therapy

== ENCOUNTER 2018-04-02 16:25 | Inpatient (IN) | payer OTHER ==
[2018-04-02 17:27] VITALS: BMI 32.1
[2018-04-02 18:35] VITALS: RESP 20
[2018-04-02] MEDS: Insulin Regular 100 units/ml SC SCH (22:20)
[2018-04-03] MEDS: Levothyroxine 175 MCG TAB PO SCH (06:12)
[2018-04-03 06:37] LABS: HEMOGLOBIN 12.1 g/dL (12.0-16.0); MEAN CELL VOLUME 91.3 fl (81.0-99.0); MEAN CORPUSCULAR HEMOGLOBIN 30.4 pg (27.0-31.0); MEAN CORPUSCULAR HGB CONC 33.3 g/dL (33.0-37.0); RED CELL DISTRIBUTION WIDTH 13.1 % (11.5-14.5); WHITE BLOOD COUNT 11.1 K/uL (4.8-10.8)
[2018-04-03 06:43] LABS: BLOOD UREA NITROGEN 16 mg/dl (7-17); CALCIUM 9.4 mg/dL (8.4-10.2); GFR AFRICAN-AMERICAN > 60; GFR NON-AFRICAN AMERICAN > 60
[2018-04-03] MEDS: Insulin Regular 100 units/ml SC SCH ×4 (07:03→22:21)
[2018-04-03] MEDS: Enoxaparin 40 mg Syringe SC SCH (08:29)
[2018-04-03] MEDS: Multivitamin With Minerals Tab PO SCH (08:29)
--- NOTE | 2018-04-03 10:12 | CP.PCM.CON ---
History of Present Illness - History of Present Illness History of Present Illness: this 67-year-old female, a diabetic with history of thyroid and pancreatic malignancies for which she has been treated he is known to me following her recent hospitalization in the acute care facility. The patient had severe orthostatic hypotension while taking anti-diabetics in the form of Coreg and anti-diabetics in the form of Farxiga, and had had multiple syncopal episodes with systolic blood pressure going as low as 60 mmHg while upright. The patient was treated with intravenous saline and started on 0.1 mg of Florinef with marked improvement in her systolic blood pressure in upright posture. The patient is now in the transitional care unit. Physical examination shows an elderly female who is sitting up in a chair and had just visited the bathroom and had showered without having any sense of lightheadedness. Her heart rate was 70 bpm regular and her blood pressure while sitting in a chair was 130/70 mmHg and upon standing up was 80/50 mmHg without any sense of lightheadedness. Her jugular venous pressure was not elevated and there was no edema over lower extremity. Her heart sounds appear. There were no rales. Impression: autonomic neuropathy with orthostatic hypotension secondary to diabetes mellitus. I have increased the dose of Florinef from 0.1 mg twice a day to 0.1 mg 3 times a day. Her systolic blood pressure in upright posture will be closely monitored. I have encouraged the patient to stay out of bed to chair for long periods of time. Past Patient History - Past Medical History & Family History Past Medical History?: Yes - Past Social History Smoking Status: Never Smoked - CARDIAC Hx Cardiac Disorders: No - PULMONARY Hx Respiratory Disorders: No - NEUROLOGICAL Hx Neurological Disorder: Yes Hx Alzheimer's Disease: Yes - HEENT Hx HEENT Problems: No - RENAL Hx Chronic Kidney Disease: No - ENDOCRINE/METABOLIC Hx Endocrine Disorders: Yes Hx Diabetes Mellitus Type 2: Yes Other/Comment: pancreatic cancer - HEMATOLOGICAL/ONCOLOGICAL Hx Blood Disorders: No Hx AIDS: No Hx Human Immunodeficiency Virus (HIV): No - INTEGUMENTARY Hx Dermatological Problems: No - MUSCULOSKELETAL/RHEUMATOLOGICAL Hx Musculoskeletal Disorders: Yes 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) Hx Falls: No - GASTROINTESTINAL Hx Gastrointestinal Disorders: Yes Hx Pancreatitis: Yes (panceratic cancer) - GENITOURINARY/GYNECOLOGICAL Hx Genitourinary Disorders: No - PSYCHIATRIC Hx Psychophysiologic Disorder: Yes Hx Substance Use: No Other/Comment: alzheimers dis - SURGICAL HISTORY Hx Surgeries: No - ANESTHESIA Hx Anesthesia: Yes Hx Anesthesia Reactions: No Hx Malignant Hyperthermia: No Has any member of the family had a problem w/ anesthesia?: No Meds Allergies/Adverse Reactions: Allergies Allergy/AdvReac Type Severity Reaction Status Date / Time No Known Allergies Allergy Verified 04/02/18 16:41 - Medications Medications: Current Medications Aspirin (Ecotrin) 81 mg PO DAILY [facility] Last Admin: 04/03/18 08:27 Dose: 81 mg Atorvastatin Calcium (Lipitor) 20 mg PO DAILY [facility] Last Admin: 04/03/18 08:28 Dose: 20 mg Donepezil HCl (Aricept) 10 mg PO HS [facility] Last Admin: 04/02/18 21:15 Dose: 10 mg Enoxaparin Sodium (Lovenox) 40 mg SC DAILY [facility] PRN Reason: Protocol Last Admin: 04/03/18 08:29 Dose: 40 mg Fludrocortisone Acetate (Florinef) 0.1 mg PO TID [facility] Last Admin: 04/03/18 08:28 Dose: 0.1 mg Insulin Human Regular (Humulin R) [address] [facility] PRN Reason: Protocol Last Admin: 04/03/18 07:03 Dose: 1 units Levothyroxine Sodium (Synthroid) 175 mcg PO DAILY@0630 [facility] Last Admin: 04/03/18 06:12 Dose: 175 mcg Metformin HCl (Glucophage) 1,000 mg PO BID [facility] Last Admin: 04/03/18 08:28 Dose: 1,000 mg Multivitamins/Minerals (Therapeutic-M Tab) 1 tab PO DAILY [facility] Last Admin: 04/03/18 08:29 Dose: 1 tab Pioglitazone HCl (Actos) 15 mg PO DAILY [facility] Last Admin: 04/03/18 08:26 Dose: 15 mg Results - Vital Signs Recent Vital Signs: Last Vital Signs Temp 98.1 F 04/03/18 08:00 Pulse 84 04/03/18 08:00 Resp 20 04/03/18 08:00 BP 105/58 L 04/03/18 08:00 Pulse Ox 99 04/03/18 08:00 - Labs Result Diagrams: 04/03/18 06:21 04/03/18 06:21 Labs: Laboratory Results - last 24 hr 04/02/18 04/03/18 04/03/18 20:31 06:12 06:21 WBC 11.1 H RBC 4.00 Hgb 12.1 Hct 36.5 MCV 91.3 MCH 30.4 MCHC 33.3 RDW 13.1 Plt Count 285 Sodium Potassium Chloride Carbon Dioxide Anion Gap BUN Creatinine Est GFR ( Amer) Est GFR (Non-Af Amer) POC Glucose (mg/dL) 195 H 166 H Random Glucose Calcium 04/03/18 06:21 WBC RBC Hgb Hct MCV MCH MCHC RDW Plt Count Sodium 143 Potassium 4.6 Chloride 104 Carbon Dioxide 28 Anion Gap 16 BUN 16 Creatinine 0.8 Est GFR ( Amer) > 60 Est GFR (Non-Af Amer) > 60 POC Glucose (mg/dL) Random Glucose 179 H Calcium 9.4
--- NOTE | 2018-04-03 23:16 | HP ---
ADMISSION HISTORY AND PHYSICAL HISTORY OF PRESENT ILLNESS: Ms. Wyman is a 67-year-old female who was admitted to the transitional care unit after stay in the intensive care unit. She was admitted with syncope due to postural hypotension. Workup so far has been remarkable for severe orthostatic hypotension. The patient had been taking multiple antidiabetic and antihypertensive medications, and symptoms appeared to be related to both. PAST MEDICAL HISTORY: She has a past medical history of thyroid and pancreatic cancer. For pancreatic cancer, she is status post surgery many years ago. She also has a history of hypertension, diabetes mellitus. FAMILY HISTORY: Noncontributory. SOCIAL HISTORY: She does not smoke or drink and lives at home with her . REVIEW OF SYSTEMS: Essentially unremarkable. PHYSICAL EXAMINATION: GENERAL: The patient appears much more comfortable since addition of Florinef therapy and discontinuation of antihypertensive medication and some of the diabetic medications. VITAL SIGNS: Remarkable for blood pressure of 105/58 with a pulse of 73, respiratory rate 20. She is febrile. O2 sat is 99% on room air. SKIN: Shows fair turgor. HEENT: Pupils are equal and reactive to light and accommodation. JVP flat. Mouth shows fair hygiene. LUNGS: Clear. HEART: Regular. No murmurs or gallop. ABDOMEN: Soft, nontender. No organomegaly. EXTREMITIES: Show no edema or cyanosis. CENTRAL NERVOUS SYSTEM EXAM: Grossly intact. LABORATORY DATA: Reviewed. IMPRESSION: Syncopal episode secondary to severe postural hypotension due to autonomic neuropathy and antihypertensive and diabetic medications. Diabetes mellitus poorly controlled. Hypertension poorly controlled. History of pancreatic cancer in the past. History of thyroid cancer in the past. PLAN: Monitor the patient in telemetry. Adjust medications appropriately. Monitor blood sugar closely. Discharge once clinically stable. Physical and occupational therapy already started. Guzman Husain MD
[2018-04-04] MEDS: Levothyroxine 175 MCG TAB PO SCH (06:42)
[2018-04-04] MEDS: Insulin Regular 100 units/ml SC SCH ×4 (06:46→21:33)
[2018-04-04] MEDS: Enoxaparin 40 mg Syringe SC SCH (08:27)
[2018-04-04] MEDS: Multivitamin With Minerals Tab PO SCH (08:28)
--- NOTE | 2018-04-04 11:38 | CP.PCM.PN ---
Subjective - Date & Time of Evaluation Date of Evaluation: 04/04/18 Time of Evaluation: 11:38 - Subjective Subjective: NO APPARENT DISTRESS VSS Objective - Vital Signs/Intake and Output Vital Signs (last 24 hours): Temp Pulse Resp BP Pulse Ox 98.1 F 81 20 102/63 97 04/04/18 08:30 04/04/18 08:30 04/04/18 08:30 04/04/18 08:30 04/04/18 08:30 - Medications Medications: Current Medications Aspirin (Ecotrin) 81 mg PO DAILY [facility] Last Admin: 04/04/18 08:25 Dose: 81 mg Atorvastatin Calcium (Lipitor) 20 mg PO DAILY [facility] Last Admin: 04/04/18 08:27 Dose: 20 mg Donepezil HCl (Aricept) 10 mg PO HS [facility] Last Admin: 04/03/18 22:21 Dose: 10 mg Enoxaparin Sodium (Lovenox) 40 mg SC DAILY [facility] PRN Reason: Protocol Last Admin: 04/04/18 08:27 Dose: 40 mg Fludrocortisone Acetate (Florinef) 0.1 mg PO TID [facility] Last Admin: 04/04/18 08:26 Dose: 0.1 mg Insulin Human Regular (Humulin R) 0 units SC [facility] PRN Reason: Protocol Last Admin: 04/04/18 06:46 Dose: 2 units Levothyroxine Sodium (Synthroid) 175 mcg PO DAILY@0630 [facility] Last Admin: 04/04/18 06:42 Dose: 175 mcg Metformin HCl (Glucophage) 1,000 mg PO BID@0800,1700 [facility] Last Admin: 04/04/18 08:26 Dose: 1,000 mg Multivitamins/Minerals (Therapeutic-M Tab) 1 tab PO DAILY [facility] Last Admin: 04/04/18 08:28 Dose: 1 tab Pioglitazone HCl (Actos) 30 mg PO DAILY [facility] - Labs Labs: 04/03/18 06:21 04/03/18 06:21 - Constitutional Appears: No Acute Distress - Head Exam Head Exam: ATRAUMATIC, NORMAL INSPECTION, NORMOCEPHALIC - Eye Exam Eye Exam: EOMI, Normal appearance, PERRL Pupil Exam: NORMAL ACCOMODATION, PERRL - ENT Exam ENT Exam: Mucous Membranes Moist, Normal Exam - Neck Exam Neck Exam: Full ROM, Normal Inspection. absent: Lymphadenopathy - Respiratory Exam Respiratory Exam: Clear to Ausculation Bilateral, NORMAL BREATHING PATTERN - Cardiovascular Exam Cardiovascular Exam: REGULAR RHYTHM, +S1, +S2. absent: Murmur - GI/Abdominal Exam GI & Abdominal Exam: Soft, Normal Bowel Sounds. absent: Tenderness - Rectal Exam Rectal Exam: NORMAL INSPECTION - Extremities Exam Extremities Exam: Full ROM, Normal Capillary Refill, Normal Inspection. absent : Joint Swelling, Pedal Edema - Back Exam Back Exam: NORMAL INSPECTION - Neurological Exam Neurological Exam: Alert, Awake, CN II-XII Intact, Normal Gait, Oriented x3 - Psychiatric Exam Psychiatric exam: Normal Affect, Normal Mood - Skin Skin Exam: Dry, Intact, Normal Color, Warm Assessment and Plan - Assessment and Plan (Free Text) Assessment: SYNCOPE DM POSTORAL HYPOTENSION HYPOTHYROIDISM Plan: CONTINUE CURRENT THERAPY
--- NOTE | 2018-04-04 12:13 | CP.PCM.PN ---
Subjective - Date & Time of Evaluation Date of Evaluation: 04/04/18 Time of Evaluation: 11:00 - Subjective Subjective: Quite symptom free while lying down in bed and also on standing up BP lying down 140/60 mm Hg Sitting up 130/60 mm Hg Standing 100/50 mm Hg No signs of volume over load (flat JVP and no rales) Will increase Florinef dose to 0.2 Mg BID Objective - Vital Signs/Intake and Output Vital Signs (last 24 hours): Temp Pulse Resp BP Pulse Ox 98.1 F 81 20 102/63 97 04/04/18 08:30 04/04/18 08:30 04/04/18 08:30 04/04/18 08:30 04/04/18 08:30 - Medications Medications: Current Medications Aspirin (Ecotrin) 81 mg PO DAILY [facility] Last Admin: 04/04/18 08:25 Dose: 81 mg Atorvastatin Calcium (Lipitor) 20 mg PO DAILY [facility] Last Admin: 04/04/18 08:27 Dose: 20 mg Donepezil HCl (Aricept) 10 mg PO HS [facility] Last Admin: 04/03/18 22:21 Dose: 10 mg Enoxaparin Sodium (Lovenox) 40 mg SC DAILY [facility] PRN Reason: Protocol Last Admin: 04/04/18 08:27 Dose: 40 mg Fludrocortisone Acetate (Florinef) 0.1 mg PO TID [facility] Last Admin: 04/04/18 08:26 Dose: 0.1 mg Insulin Human Regular (Humulin R) 0 units SC ACHS [facility] PRN Reason: Protocol Last Admin: 04/04/18 11:40 Dose: 3 units Levothyroxine Sodium (Synthroid) 175 mcg PO DAILY@0630 [facility] Last Admin: 04/04/18 06:42 Dose: 175 mcg Metformin HCl (Glucophage) 1,000 mg PO BID@0800,1700 [facility] Last Admin: 04/04/18 08:26 Dose: 1,000 mg Multivitamins/Minerals (Therapeutic-M Tab) 1 tab PO DAILY [facility] Last Admin: 04/04/18 08:28 Dose: 1 tab Pioglitazone HCl (Actos) 30 mg PO DAILY [facility] - Labs Labs: 04/03/18 06:21 04/03/18 06:21
[2018-04-05] MEDS: Levothyroxine 175 MCG TAB PO SCH (06:50)
[2018-04-05] MEDS: Insulin Regular 100 units/ml SC SCH ×4 (07:52→21:12)
[2018-04-05] MEDS: Multivitamin With Minerals Tab PO SCH (09:27)
[2018-04-05] MEDS: Enoxaparin 40 mg Syringe SC SCH (09:29)
[2018-04-05] MEDS: Hydrocerin CREAM TOP SCH (09:31)
--- NOTE | 2018-04-05 11:59 | CP.PCM.PN ---
Subjective - Date & Time of Evaluation Date of Evaluation: 04/05/18 Time of Evaluation: 12:00 - Subjective Subjective: AGITATION AND CONFUSION LAST NIGHT CALM THIS AM DAUGHTER AT BEDSIDE Objective - Vital Signs/Intake and Output Vital Signs (last 24 hours): Temp Pulse Resp BP Pulse Ox 98.2 F 71 20 137/57 L 96 04/05/18 09:40 04/05/18 09:40 04/05/18 09:40 04/05/18 09:40 04/05/18 09:40 - Medications Medications: Current Medications Aspirin (Ecotrin) 81 mg PO DAILY [facility] Last Admin: 04/05/18 09:28 Dose: 81 mg Atorvastatin Calcium (Lipitor) 20 mg PO DAILY [facility] Last Admin: 04/05/18 09:30 Dose: 20 mg Donepezil HCl (Aricept) 10 mg PO HS [facility] Last Admin: 04/04/18 21:33 Dose: 10 mg Enoxaparin Sodium (Lovenox) 40 mg SC DAILY [facility] PRN Reason: Protocol Last Admin: 04/05/18 09:29 Dose: 40 mg Fludrocortisone Acetate (Florinef) 0.2 mg PO BID [facility] Last Admin: 04/05/18 09:27 Dose: 0.2 mg Insulin Human Regular (Humulin R) 0 units SC ACHS [facility] PRN Reason: Protocol Last Admin: 04/05/18 07:52 Dose: 2 units Levothyroxine Sodium (Synthroid) 175 mcg PO DAILY@0630 [facility] Last Admin: 04/05/18 06:50 Dose: 175 mcg Metformin HCl (Glucophage) 1,000 mg PO BID@0800,1700 [facility] Last Admin: 04/05/18 09:28 Dose: 1,000 mg Multi-Ingredient Cream (Hydrocerin Cream) 1 applic TOP DAILY [facility] Last Admin: 04/05/18 09:31 Dose: 1 u Multivitamins/Minerals (Therapeutic-M Tab) 1 tab PO DAILY [facility] Last Admin: 04/05/18 09:27 Dose: 1 tab Pioglitazone HCl (Actos) 45 mg PO DAILY [facility] - Labs Labs: 04/03/18 06:21 04/03/18 06:21 - Constitutional Appears: No Acute Distress - Head Exam Head Exam: ATRAUMATIC, NORMAL INSPECTION, NORMOCEPHALIC - Eye Exam Eye Exam: EOMI, Normal appearance, PERRL Pupil Exam: NORMAL ACCOMODATION, PERRL - ENT Exam ENT Exam: Mucous Membranes Moist, Normal Exam - Neck Exam Neck Exam: Full ROM, Normal Inspection. absent: Lymphadenopathy - Respiratory Exam Respiratory Exam: Clear to Ausculation Bilateral, NORMAL BREATHING PATTERN - Cardiovascular Exam Cardiovascular Exam: REGULAR RHYTHM, +S1, +S2. absent: Murmur - GI/Abdominal Exam GI & Abdominal Exam: Soft, Normal Bowel Sounds. absent: Tenderness - Rectal Exam Rectal Exam: NORMAL INSPECTION - Extremities Exam Extremities Exam: Full ROM, Normal Capillary Refill, Normal Inspection. absent : Joint Swelling, Pedal Edema - Back Exam Back Exam: NORMAL INSPECTION - Neurological Exam Neurological Exam: Alert, Awake, CN II-XII Intact, Normal Gait, Oriented x3 - Psychiatric Exam Psychiatric exam: Normal Affect, Normal Mood - Skin Skin Exam: Dry, Intact, Normal Color, Warm Assessment and Plan - Assessment and Plan (Free Text) Assessment: SUNDOWN SYNDROME SYNCOPE DUE TO AUTONOMIC NEUROPATHY AND POSTURAL HYPOTENSION AND MEDICATION SIDE EFFECTS ROSACEA DIABETES MELLITUS--TYPE 2 [UNCONTROLLED] HX OF THYROID AND PANCREATIC CANCER DEMENTIA HX OF HYPERTENSION Plan: DAUGHTER WANTS TO TAKE PT HOME---WILL PLAN DISCHARGE IN AM AFTER CONSULTATION WITH [employer] OPERATOR INCREASE ACTOS TO 45 MG OD
[2018-04-06] MEDS: Insulin Regular 100 units/ml SC SCH (06:29)
[2018-04-06] MEDS: Levothyroxine 175 MCG TAB PO SCH (06:29)
[2018-04-06] MEDS: Enoxaparin 40 mg Syringe SC SCH (08:09)
[2018-04-06] MEDS: Hydrocerin CREAM TOP SCH (08:09)
[2018-04-06] MEDS: Multivitamin With Minerals Tab PO SCH (08:10)
[2018-04-06 08:17] VITALS: BP 146/72; PULSE 67; TEMP 97.3; O2SAT 100
--- NOTE | 2018-04-06 08:25 | CP.PCM.DIS ---
Provider - Provider Date of Admission: 04/02/18 17:28 Attending physician: Guzman Lund MD Time Spent in preparation of Discharge (in minutes): 35 Diagnosis - Discharge Diagnosis (1) Rosacea Status: Acute (2) Autonomic postural hypotension Status: Acute (3) Diabetes 1.5, managed as type 2 Status: Acute (4) History of pancreatic cancer Status: Acute (5) History of thyroid cancer Status: Acute (6) Hypertension Status: Acute (7) Postural hypotension Status: Acute (8) Syncope Status: Acute Hospital Course - Lab Results Lab Results: Most Recent Lab Values WBC 11.1 K/uL (4.8-10.8) H 04/03/18 06:21 RBC 4.00 Mil/uL (3.80-5.20) 04/03/18 06:21 Hgb 12.1 g/dL (12.0-16.0) 04/03/18 06:21 Hct 36.5 % (34.0-47.0) 04/03/18 06:21 MCV 91.3 fl (81.0-99.0) 04/03/18 06:21 MCH 30.4 pg (27.0-31.0) 04/03/18 06:21 MCHC 33.3 g/dL (33.0-37.0) 04/03/18 06:21 RDW 13.1 % (11.5-14.5) 04/03/18 06:21 Plt Count 285 K/uL (130-400) 04/03/18 06:21 Sodium 143 mmol/l (132-148) 04/03/18 06:21 Potassium 4.6 MMOL/L (3.6-5.0) 04/03/18 06:21 Chloride 104 mmol/L (98-107) 04/03/18 06:21 Carbon Dioxide 28 mmol/L (22-30) 04/03/18 06:21 Anion Gap 16 (10-20) 04/03/18 06:21 BUN 16 mg/dl (7-17) 04/03/18 06:21 Creatinine 0.8 mg/dl (0.7-1.2) 04/03/18 06:21 Est GFR ( Amer) > 60 04/03/18 06:21 Est GFR (Non-Af Amer) > 60 04/03/18 06:21 POC Glucose (mg/dL) 238 mg/dL (65-110) H 04/05/18 20:24 Random Glucose 179 mg/dL (65-105) H 04/03/18 06:21 Calcium 9.4 mg/dL (8.4-10.2) 04/03/18 06:21 - Hospital Course Hospital Course: FEELS BETTER VSS S.GLU 202 HALLUCINATIONS RESOLVED FAMILY WANTS TO TAKE PT HOME TODAY Discharge Exam - Head Exam Head Exam: ATRAUMATIC, NORMAL INSPECTION, NORMOCEPHALIC - Eye Exam Eye Exam: EOMI, Normal appearance, PERRL Pupil Exam: NORMAL ACCOMODATION, PERRL - GI/Abdominal Exam GI & Abdominal Exam: Normal Bowel Sounds - Rectal Exam Rectal Exam: NORMAL INSPECTION - Neurological Exam Neurological exam: Alert, CN II-XII Intact, Normal Gait, Oriented x3, Reflexes Normal - Psychiatric Exam Psychiatric exam: Normal Affect, Normal Mood - Skin Skin Exam: Dry, Intact, Normal Color, Warm Discharge Plan - Follow Up Plan Condition: GOOD Disposition: HOME/ ROUTINE Patient education suggested?: Yes Additional Instructions: DISCHARGE TODAY FOLLOW UP WITH DR LUND
--- NOTE | 2018-04-06 09:55 | CP.PCM.PN ---
Subjective - Date & Time of Evaluation Date of Evaluation: 04/06/18 Time of Evaluation: 09:00 - Subjective Subjective: Has had no further dizzy spells BP sitting up 120/70 mm Hg Standing up 106/70 mm Hg HR 76 BPM, reg JVP flat, no oedema over feet No rales May go home on present Rx Daughter was instructed to weigh pt daily and call if weight increases by > 3 Lbs in aweek Objective - Vital Signs/Intake and Output Vital Signs (last 24 hours): Temp Pulse Resp BP Pulse Ox 97.3 F L 67 20 146/72 100 04/06/18 08:16 04/06/18 08:16 04/06/18 08:16 04/06/18 08:16 04/06/18 08:16 - Medications Medications: Current Medications Aspirin (Ecotrin) 81 mg PO DAILY [facility] Last Admin: 04/06/18 08:09 Dose: 81 mg Atorvastatin Calcium (Lipitor) 20 mg PO DAILY [facility] Last Admin: 04/06/18 08:09 Dose: 20 mg Donepezil HCl (Aricept) 10 mg PO HS [facility] Last Admin: 04/05/18 21:11 Dose: 10 mg Enoxaparin Sodium (Lovenox) 40 mg SC DAILY [facility] PRN Reason: Protocol Last Admin: 04/06/18 08:09 Dose: 40 mg Fludrocortisone Acetate (Florinef) 0.2 mg PO BID [facility] Last Admin: 04/06/18 08:09 Dose: 0.2 mg Insulin Human Regular (Humulin R) 0 units SC ACHS [facility] PRN Reason: Protocol Last Admin: 04/06/18 06:29 Dose: 2 units Levothyroxine Sodium (Synthroid) 175 mcg PO DAILY@0630 [facility] Last Admin: 04/06/18 06:29 Dose: 175 mcg Metformin HCl (Glucophage) 1,000 mg PO BID@0800,1700 [facility] Last Admin: 04/06/18 08:09 Dose: 1,000 mg Multi-Ingredient Cream (Hydrocerin Cream) 1 applic TOP DAILY [facility] Last Admin: 04/06/18 08:09 Dose: 1 u Multivitamins/Minerals (Therapeutic-M Tab) 1 tab PO DAILY [facility] Last Admin: 04/06/18 08:10 Dose: 1 tab Pioglitazone HCl (Actos) 45 mg PO DAILY [facility] Last Admin: 04/06/18 08:08 Dose: 45 mg - Labs Labs: 04/03/18 06:21 04/03/18 06:21
== END 2018-04-06 12:00 | disposition home health service (06) | DRG 312 ==
LOC: H.TCU 17:28
PROVIDERS: ADMIT Internal Medicine Pulmonary Disease; ATTEND Internal Medicine Pulmonary Disease
PROC: F08Z4FZ Home Management Treatment using Assistive, Adaptive, Supportive or Protective Equipment (ICD-10-PCS; principal; 2018-04-02)
PROC: F07M6FZ Therapeutic Exercise Treatment of Musculoskeletal System - Whole Body using Assistive, Adaptive, Supportive or Protective Equipment (ICD-10-PCS; 2018-04-02)
DX: I95.1 Orthostatic hypotension (principal); E11.43 Type 2 diabetes mellitus with diabetic autonomic (poly)neuropathy; L71.9 Rosacea, unspecified; Z85.07 Personal history of malignant neoplasm of pancreas; Z85.850 Personal history of malignant neoplasm of thyroid; F45.9 Somatoform disorder, unspecified; M19.90 Unspecified osteoarthritis, unspecified site; M75.00 Adhesive capsulitis of unspecified shoulder; R45.1 Restlessness and agitation; R55 Syncope and collapse; E03.9 Hypothyroidism, unspecified; E11.65 Type 2 diabetes mellitus with hyperglycemia; F02.80 Dementia in other diseases classified elsewhere, unspecified severity, without behavioral disturbance, psychotic disturbance, mood disturbance, and anxiety; G30.9 Alzheimer's disease, unspecified; G62.9 Polyneuropathy, unspecified; I10 Essential (primary) hypertension